=== PATIENT | female | born 1975 | race Asian ===

== ENCOUNTER 2017-11-09 05:05 | Inpatient (IN) | payer BC ==
[2017-11-04 16:30] VITALS: BMI 25.4
[2017-11-09] MEDS ORDERED: VASOPRESSIN 20 UNITS/ML VIAL IV ONE (07:15)
[2017-11-09] MEDS ORDERED: PROPOFOL 20 ML ONE (08:13)
[2017-11-09] MEDS ORDERED: fentaNYL CITRATE 250 MCG/5 ML VIAL ONE (08:13)
[2017-11-09] MEDS ORDERED: SUCCINYLCHOLINE CHLORIDE 200 MG/10 ML VIAL ONE (08:13)
[2017-11-09] MEDS ORDERED: LIDOCAINE HCL/PF 2% SDV 5ML VIAL ONE (08:14)
[2017-11-09] MEDS ORDERED: DEXAMETHASONE SOD PHOSPHATE 4 MG/1 ML VIAL ONE (08:14)
[2017-11-09] MEDS ORDERED: ROCURONIUM BROMIDE 50 MG/5 ML VIAL ONE (08:14)
[2017-11-09] MEDS ORDERED: MIDAZOLAM HCL 2 MG/2 ML SINGLE DOSE VIAL ONE ×3 (08:14→08:38)
[2017-11-09] MEDS ORDERED: DEXAMETHASONE SOD PHOSPHATE/PF 10 MG/ML SDV ONE (08:36)
[2017-11-09] MEDS ORDERED: ROPIVACAINE HCL 0.5% 30ML VIAL ONE (08:36)
[2017-11-09] MEDS ORDERED: CEFAZOLIN 2 GM/D5W 2 GM/50 ML ML IVPB ONE (09:00)
--- NOTE | 2017-11-09 10:07 | HP ---
Admitting History and Physical - Admission Chief Complaint: Here for myomectomy due to fibroids. History of Present Illness: 42 y/o female with no significant past medical history other than fibroid uterus here for scheduled abdominal myomectomy. Pt seen in office in July and again in September and pt counseled on options and desires myomectomy and bilateral salpingectomy. Consents signed in office and reconfirmed this a.m. History Source: Patient, Medical Record Limitations to Obtaining History: No Limitations - Past Medical History KETTLE COORDINATOR: No: Migraine Cardiovascular: No: AFIB, HTN Pulmonary: No: Asthma Reproductive: Yes: Fibroids. No: Ectopic , Endometriosis, PID ...LMP: 10/20/17 ...LMP Comment: regular ...: No Heme/Onc: No: Anemia Infectious Disease: No: HIV, MRSA, STD's Psych: No: Anxiety, Bipolar, Depression - Past Surgical History Past Surgical History: Yes: None - Smoking History Smoking history: Never smoked - Alcohol/Substance Use Hx Alcohol Use: No History of Substance Use: reports: None - Social History Usual Living Arrangement: Yes: With Spouse ADL: Independent History of Recent Travel: No Home Medications - Allergies Allergies/Adverse Reactions: Allergies Allergy/AdvReac Type Severity Reaction Status Date / Time No Known Drug Allergies Allergy Verified 11/09/17 08:57 - Home Medications Home Medications: Ambulatory Orders NK [No Known Home Medication] 11/04/17 Review of Systems - Review of Systems Constitutional: reports: No Symptoms Eyes: reports: No Symptoms HENT: reports: No Symptoms Neck: reports: No Symptoms Cardiovascular: reports: No Symptoms Respiratory: reports: No Symptoms Gastrointestinal: reports: No Symptoms Genitourinary: reports: No Symptoms Breasts: reports: No Symptoms Reported Musculoskeletal: reports: No Symptoms Integumentary: reports: No Symptoms Neurological: reports: No Symptoms Endocrine: reports: No Symptoms Hematology/Lymphatic: reports: No Symptoms Psychiatric: reports: No Symptoms Physical Examination Vital Signs: Vital Signs Temperature 97.9 F 11/09/17 08:58 Pulse Rate 70 11/09/17 08:58 Respiratory Rate 18 11/09/17 08:58 Blood Pressure 111/72 11/09/17 08:58 O2 Sat by Pulse Oximetry (%) 99 11/09/17 09:01 Constitutional: Yes: Well Nourished, No Distress, Calm Eyes: Yes: WNL HENT: Yes: WNL Neck: Yes: WNL Cardiovascular: Yes: WNL Respiratory: Yes: WNL Gastrointestinal: Yes: Soft, Palpable Mass (large fibroid uterus) Extremities: Yes: WNL Edema: No Neurological: Yes: Alert, Oriented Psychiatric: Yes: Alert, Oriented Imaging - Results Ultrasound: Report Reviewed Problem List - Problems (1) Fibroid Code(s): D25.9 - LEIOMYOMA OF UTERUS, UNSPECIFIED (2) Admission for sterilization Code(s): Z30.2 - ENCOUNTER FOR STERILIZATION Assessment/Plan 42 y/o with large fibroid uterus here for abdominal myomectomy and bilateral salpingectomy NPO SCDs Hampton to be placed in OR anesthesia has seen patient
[2017-11-09] MEDS ORDERED: ceFAZolin SODIUM 1 GM VIAL IVPB ONE (10:12)
[2017-11-09] MEDS ORDERED: ceFAZolin SODIUM 1 GM VIAL ONE (10:16)
[2017-11-09] MEDS ORDERED: NEOSTIGMINE METHYLSULFATE 0.5 MG/ML - 10 ML MDV ONE (11:18)
[2017-11-09] MEDS ORDERED: GLYCOPYRROLATE 0.2 MG/1 ML VIAL ONE (11:18)
[2017-11-09] MEDS ORDERED: oxyCODONE HCL 5 MG TABLET PO PRN (11:23)
[2017-11-09] MEDS ORDERED: IBUPROFEN 600 MG TABLET (FP) PO PRN (11:23)
[2017-11-09] MEDS ORDERED: IBUPROFEN 800 MG/8 ML IJ IVPB PRN (11:23)
[2017-11-09] MEDS ORDERED: ACETAMINOPHEN 325 MG TABLET (FP) PO PRN (11:23)
--- NOTE | 2017-11-09 11:23 | OP ---
Operative Note - Note: Operative Date: 11/09/17 Pre-Operative Diagnosis: uterine fibroid, desire for sterilization Operation: abdominal myomectomy, bilateral salpingectomy Implants: large 10cm dominant fundal fibroid, normal b/l tubes and ovaries Post-Operative Diagnosis: Same as Pre-op Surgeon: Sandhya Franco Sleep Manager: Carlitos Villagomez Anesthesiologist/MACHINERY RIGGER: Willie Zarco Anesthesia: General Specimens Removed: fibroid, bilateral fallopian tubes Estimated Blood Loss (mls): 400 Operative Report Dictated: Yes
[2017-11-09] MEDS ORDERED: SIMETHICONE 80 MG TAB.CHEW (FP) PO PRN (11:25)
[2017-11-09] MEDS ORDERED: LACTATED RINGERS SOLUTION 1,000 ML IV SCH (11:30)
[2017-11-09] MEDS ORDERED: ONDANSETRON 4 MG/2 ML VIAL IVPUSH PRN (11:49)
[2017-11-09] MEDS ORDERED: IBUPROFEN 800 MG/8 ML IJ IVPB ONE (13:05)
--- NOTE | 2017-11-09 13:44 | SURG ---
Surgery Welding Machine Operator Gas Note Welding Machine Operator Gas: Carlitos Villagomez PA-C Date of Service: 11/09/17 Diagnosis: uterine fibroid, desire for sterilization Procedure: abdominal myomectomy, bilateral salpingectomy I was present for the entirety of the operative procedure. For further detail, please refer to operative report. Visit type - Case Type Case Type: Scheduled - New patient This patient is new to me today: Yes Date on this admission: 11/09/17
--- NOTE | 2017-11-09 14:23 | OP ---
DATE OF OPERATION: 11/09/2017 PREOPERATIVE DIAGNOSES: Large intrauterine fibroid, desire for permanent sterilization. POSTOPERATIVE DIAGNOSES: Large intrauterine fibroid, desire for permanent sterilization. PROCEDURE: Abdominal myomectomy, bilateral salpingectomy. SURGEON: Sandhya Franco DO BOLT LABELER: RENATO Dupont ANESTHESIA: General by Willie Zarco CRNA and Cal Quintana MD. ESTIMATED BLOOD LOSS: 400 mL. COMPLICATIONS: None. SPECIMENS: Uterine fibroid and bilateral fallopian tubes. COUNTS: Sponge, needle and instrument count correct. DISPOSITION: Stable to PACU. BRIEF HISTORY AND PROCEDURE: Patient is a 42-year-old female who had been seen in the office with a known uterine fibroid for several years which had been growing slowly. The patient had several ultrasounds which noted a stable 10-cm dominant uterine fibroid. The patient elected to undergo surgery and following counseling on the surgical options she elected to undergo a myomectomy procedure. She also expressed desire for permanent sterilization at which point she also elected to undergo bilateral salpingectomy. Consents for the procedure and for the sterilization were signed in the office and reconfirmed upon the admission on November 09, 2017. Patient was admitted to [facility] on November 09, 2017. After the patient and surgeon were mutually identified in the holding area, the patient was taken back to the operating room where she was given general anesthesia and placed in the dorsal supine position. A Hampton catheter was placed under sterile conditions. She was prepped and draped and a hard timeout was performed. A Pfannenstiel skin incision was created in the skin with a scalpel and carried to the underlying layer of rectus fascia with the Bovie. The fascia was incised on either side of the midline and the fascial incision was carried in the superolateral direction sharply. The fascia was tented upward and dissected off of the underlying layer of rectus muscle with the Bovie. The musculature was retracted laterally and the peritoneum was entered sharply to allow for adequate room for the surgery. The uterus was exteriorized from the abdomen and a large approximately 10-cm fundal fibroid was appreciated. Attention was first turned to the right fallopian tube which was elevated with a Roma clamp and dissected off of its attachment to the ovary, mesosalpinx and uterus using the LigaSure device. The same was repeated on the left fallopian tube. Both fallopian tubes were sent to Pathology and confirmed by evaluation. 20cc of Dilute vasopressin was injected into the uterine serosa at the area of planned incision. An anterior-posterior incision was made along the uterine serosa through to the capsule of the fibroid. The fibroid was decapsulated and shelled out and removed in its entirety using sharp dissection with the Bovie. The uterine defect was palpated. No other small intrauterine fibroids were appreciated and the uterine defect was reapproximated using 0 chromic in several layers and the uterine serosa was reapproximated using 2-0 V-Loc resulting in excellent hemostasis. Bilateral tubal sites were noted to be hemostatic. The myomectomy site was noted to be hemostatic. The uterus was placed back in the abdomen. The peritoneum was reapproximated using 2-0 Vicryl in a running fashion. The musculature was reapproximated using 2 interrupted sutures using 2-0 Vicryl. The fascia was reapproximated using 1 Vicryl in a running fashion. The subcutaneous tissue was irrigated and reapproximated using 3-0 Vicryl in a running fashion and the skin was reapproximated in a subcuticular fashion and Steri-Strips were applied. Patient tolerated the procedure well, recovered in stable condition in the PACU after the procedure. Sponge, needle and instrument counts were reported to be correct at the end of the case. SANDHYA FRANCO DO /[id number] MTDD
[2017-11-09] MEDS: FERROUS SO4 325 MG TABLET (FP) PO SCH (17:30)
[2017-11-09] MEDS: oxyCODONE HCL 5 MG TABLET PO PRN (21:14)
[2017-11-10] MEDS: oxyCODONE HCL 5 MG TABLET PO PRN ×4 (04:40→22:28)
--- NOTE | 2017-11-10 07:49 | PN ---
Progress Note (short form) - Note Progress Note: POD#1 Pt states that she was oob and ambulated, voiding without difficulty. Tolerated solids foods, last pm without any nausea or emesis. Vital Signs Period Temp Pulse Resp BP Sys/Lyons Pulse Ox Last 24 Hr 97.6 F-98.6 F 59-82 14-20 98-112/58-72 97-100 GEN: A&0x3, NAD CV: RRR Lungs: CTA b/l ABD: soft, non-distended, inc tenderness. Dressing c/d/i. LE: SCDs in place. No calf tenderness or swelling noted b/l A/p: 42 yo female s/p abdominal myomectomy/b/l salpingectomy Continue diet as tolerated oob/ambulate CBC to be drawn oral pain medications as needed D/w Dr. Franco
[2017-11-10 07:59] LABS: BASO % 0.1 % (0-2.0); HEMATOCRIT 34.1 % (32.4-45.2); HEMOGLOBIN 11.7 GM/dL (10.7-15.3); LYMPH % 12.9 % (8-40); MCH 29.1 pg (25.7-33.7); MCHC 34.3 g/dl (32.0-36.0); MEAN CELL VOLUME 84.8 fl (80-96); MEAN PLT VOLUME 8.3 fl (7.5-11.1); PLATELET COUNT 222 K/MM3 (134-434); RBC 4.02 M/mm3 (3.60-5.2); RDW 14.5 % (11.6-15.6); WHITE BLOOD COUNT 15.5 K/mm3 (4.0-10.0)
[2017-11-10] MEDS: FERROUS SO4 325 MG TABLET (FP) PO SCH ×2 (08:30→17:20)
[2017-11-10] MEDS: ENOXAPARIN NA (PORCINE) 40 MG/0.4 ML DISP.SYRIN SQ SCH (09:28)
--- NOTE | 2017-11-10 09:54 | PN ---
Progress Note (short form) - Note Progress Note: Anesthesia Post-Op Note Pt s/p abdominal hysterectomy on 11/09/17 under PNB + GA. Pt reports that she is feeling well. Pain tolerable. Ambulated without issue. Tolerating PO without nausea/vomiting. Vital Signs Temperature 98.6 F 11/10/17 05:08 Pulse Rate 64 11/10/17 05:08 Respiratory Rate 18 11/10/17 05:08 Blood Pressure 98/62 11/10/17 05:08 O2 Sat by Pulse Oximetry (%) 97 11/09/17 21:00 Continue present management per primary team. Bowel regimen while on pain meds. OOB. Encourage ISS.
--- NOTE | 2017-11-10 15:55 | PN ---
Progress Note, Physician Chief Complaint: Pt with incisional pain and some dizziness/light headedness earlier. Tolerating clears, minimal VB. OOB + Void - Current Medication List Current Medications: Active Medications Acetaminophen (Tylenol -) 650 mg PO Q4H PRN PRN Reason: PAIN 1-5 Enoxaparin Sodium (Lovenox -) 40 mg SQ DAILY [facility] Last Admin: 11/10/17 09:28 Dose: 40 mg Ferrous Sulfate (Feosol -) 325 mg PO BIDWM [facility] Last Admin: 11/10/17 08:30 Dose: 325 mg Ibuprofen (Motrin -) 600 mg PO Q6H PRN PRN Reason: FEVER; IF TYLENOL NOT WRK Ibuprofen (Caldolor Injection -) 800 mg IVPB Q8H PRN PRN Reason: Fever - If PO not effective Last Admin: 11/09/17 13:10 Dose: 800 mg Ondansetron HCl (Zofran Injection) 4 mg IVPUSH Q6H PRN PRN Reason: NAUSEA AND/OR VOMITING Oxycodone HCl (Roxicodone -) 5 mg PO Q3H PRN PRN Reason: PAIN 1-5; IF TYLNL NT WRK Oxycodone HCl (Roxicodone -) 10 mg PO Q3H PRN PRN Reason: PAIN LEVEL 6-10 Last Admin: 11/10/17 09:28 Dose: 10 mg Simethicone (Mylicon -) 80 mg PO Q4H PRN PRN Reason: GAS - Objective Vital Signs: Vital Signs Temperature 99.0 F 11/10/17 14:00 Pulse Rate 73 11/10/17 14:00 Respiratory Rate 20 11/10/17 14:00 Blood Pressure 104/61 11/10/17 14:00 O2 Sat by Pulse Oximetry (%) 97 11/10/17 09:00 Constitutional: Yes: Well Nourished, No Distress, Calm Eyes: Yes: Conjunctiva Clear, EOM Intact HENT: Yes: Atraumatic Neck: Yes: WNL Cardiovascular: Yes: WNL Respiratory: Yes: Regular Gastrointestinal: Yes: WNL, Tenderness Wound/Incision: Yes: Clean/Dry, Well Approximated, Steri Strips Neurological: Yes: Alert, Oriented Labs: CBC, BMP 11/10/17 07:30 Problem List - Problems (1) Fibroid Code(s): D25.9 - LEIOMYOMA OF UTERUS, UNSPECIFIED (2) Admission for sterilization Code(s): Z30.2 - ENCOUNTER FOR STERILIZATION Assessment/Plan POD#1 s/p abdominal myomectomy and b/l salpingectomy regular diet PO pain meds advance activity d/c home in a.[facility]
--- NOTE | 2017-11-10 19:39 | DS ---
"Physical Examination Vital Signs: Vital Signs Temperature 99.0 F 11/10/17 14:00 Pulse Rate 73 11/10/17 14:00 Respiratory Rate 20 11/10/17 14:00 Blood Pressure 104/61 11/10/17 14:00 O2 Sat by Pulse Oximetry (%) 97 11/10/17 09:00 Labs: CBC, BMP 11/10/17 07:30 Discharge Summary Reason For Visit: UTERINE FIBROIDS Current Active Problems Admission for sterilization (Acute) Fibroid (Acute) Procedures: Principal: abdominal myomectomy, bilateral salpingectomy Hospital Course: Pt admitted on 11/09/2017 for scheduled abdominal myomectomy and bilateral salpingectomy. Pt underwent uncomplicated procedure. She recovered well and was discharged home on POD#2. Pt was able to eat, void and ambulate upon discharge. Condition: Good - Instructions Diet, Activity, Other Instructions: Dr. Franco discharge instructions Physical activity Resume your normal everyday activity as tolerated no heavy lifting or exercise until seen by your surgeon. You may walk unlimited amounts and climb stairs. You may resume driving the car when you feel safe and comfortable behind the wheel. No sexual activity as instructed by Dr. Franco Wound care If there are tapes on the skin over the incision leave them in place. They will peel off in the next 7 to 10 days. Do Not Peel them off. You may shower the day after surgery. If there are tapes present on the skin, you may shower over them. Diet There are no dietary restrictions. Eat healthy, high-fiber foods. Drink 6 to 8 glasses of liquid each day. This will assist in keeping your bowels regular. Pain management You may take Ibuprofen or Tylenol as needed for pain. If any pain prescription medication is ordered, it should be taken as prescribed for moderate to severe pain. Call Dr. Franco for any of the following: Severe pain not relieved by medication Fever of 101 or higher Excessive bleeding or drainage on dressing Inability to urinate Call the office at [phone] for an appointment in seven days. [facility] [employer] SH[employer]PER: This report was requested by: Kaleigh Parmar | Reference #: [id number] Disposition: HOME - Home Medications Comprehensive Discharge Medication List: Ambulatory Orders Ibuprofen [Motrin -] 600 mg PO QID PRN #28 tablet 11/10/17 Oxycodone HCl/Acetaminophen [Percocet 5-325 mg Tablet -] 1 tab PO Q4H #30 tablet MDD 6 11/10/17"
[2017-11-11] MEDS: FERROUS SO4 325 MG TABLET (FP) PO SCH (08:21)
[2017-11-11] MEDS ORDERED: BISACODYL 10 MG SUPP.RECT PR ONE (08:34)
--- NOTE | 2017-11-11 08:34 | PN ---
Progress Note (short form) - Note Progress Note: POD#2 Pt oob to chair yesterday. No nausea or emesis overnight, tolerated diet today. Passed flatus x1 yesterday. Having diffuse abd pain, "feels gassy" Vital Signs Period Temp Pulse Resp BP Sys/Lyons Pulse Ox Last 24 Hr 98.5 F-99.1 F 73-88 19-20 100-108/61-65 97-97 GEN: appers uncomfortable CV: RR, mild tachyardic Lungs: CTA b/l anteriorly ABD: soft, non-distened, diffuse tenderness. No rebound or guarding. Inc c/d/i with steri-strips. LE: no calf tenderness or swelling noted b/l A/P: 42 yo female POD#2 s/p abdominal myomectomy/ b/l salpingectomy Continue diet as tolerated Ambulated the patient in the hallway this am with the nurse and myself Stat CBC Dulcolax this am Spoke with nurse will given tylenol/motrin for pain and medicate with narcotics for severe pain, her pain appears to be gas. Simethicon as needed Plan for discharge today if pain improved D/w Dr. Franco
[2017-11-11] MEDS: ENOXAPARIN NA (PORCINE) 40 MG/0.4 ML DISP.SYRIN SQ SCH (09:24)
[2017-11-11 10:00] LABS: BASO % 0.4 % (0-2.0); EOS % 0.7 % (0-4.5); HEMATOCRIT 35.8 % (32.4-45.2); HEMOGLOBIN 11.9 GM/dL (10.7-15.3); LYMPH % 18.2 % (8-40); MCH 28.4 pg (25.7-33.7); MCHC 33.1 g/dl (32.0-36.0); MEAN PLT VOLUME 8.2 fl (7.5-11.1); MONO % 6.3 % (3.8-10.2); NEUT % 74.4 % (42.8-82.8); PLATELET COUNT 215 K/MM3 (134-434); RBC 4.17 M/mm3 (3.60-5.2); RDW 14.8 % (11.6-15.6)
--- NOTE | 2017-11-11 12:42 | PATH ---
Surgical Pathology Report Patient Name: MARCE SUAREZ [facility]. Rec. #: [id number] /Age/Gender: 1975 (Age: 42) / F Account: [id number] Location: [address] [place] [address] Taken: 11/09/2017 Received: 11/09/2017 Reported: 11/11/2017 Physicians: Sandhya Franco M.D. Specimen(s) Received A: FIBROID B: LEFT FALLOPIAN TUBE C: RIGHT FALLOPIAN TUBE Clinical History Uterine fibroids Final Diagnosis A. FIBROID, MYOMECTOMY: LEIOMYOMA. B. FALLOPIAN TUBE, LEFT, SALPINGECTOMY: FALLOPIAN TUBE WITH PARATUBAL CYST, INCLUDING FULL LUMINAL PORTION AND FIMBRIATED END. C. FALLOPIAN TUBE, RIGHT, SALPINGECTOMY: FALLOPIAN TUBE WITH FOCAL ADHESIONS, INCLUDING FULL LUMINAL PORTION AND FIMBRIATED END. Electronically Signed Toshia Ramirez M.D. Gross Description A. Received in formalin labeled "fibroid," is a 629 g, 10.5 x 10.0 x 9.0 cm mass. The outer surface is lindsay-pink with a focal defect. Sectioning reveals lindsay, firm to rubbery parenchyma. No areas of hemorrhage or necrosis are identified. Telecommunication Engineer sections are submitted in 5 cassettes. B. Received in formalin labeled "left fallopian tube," is a 5 cm in length fimbriated fallopian tube. There is a 0.4 cm in greatest dimension paratubal cyst attached to the fimbria. The outer surface is morton purple and smooth. Sectioning reveals an unremarkable lumen. Telecommunication Engineer sections are submitted in 2 cassettes as follows: 1-fimbria with paratubal cyst; 2-cross sections of fallopian tube. C. Received in formalin labeled "right fallopian tube," is a 4 cm in length fimbriated fallopian tube. The outer surface is morton purple with focal adhesions. Sectioning reveals an unremarkable lumen. Telecommunication Engineer sections are submitted in 2 cassettes as follows: 1-fimbria; 2-cross sections of fallopian tube. /11/10/201711/10/2017
[2017-11-11 15:16] VITALS: BP 96/63; PULSE 82; TEMP 98.3
== END 2017-11-11 16:45 | disposition home or self-care (01) | DRG 743 ==
LOC: JSAMEDAYSX 05:05 → EDSTATUS 10:00 → J6S 14:36
PROVIDERS: ADMIT Obstetrics & Gynecology; ATTEND Obstetrics & Gynecology
PROC: 0UB70ZZ Excision of Bilateral Fallopian Tubes, Open Approach (ICD-10-PCS; 2017-11-09)
PROC: 0UB90ZZ Excision of Uterus, Open Approach (ICD-10-PCS; principal; 2017-11-09 10:00)
DX: D25.9 Leiomyoma of uterus, unspecified (principal); Z30.2 Encounter for sterilization
CPT/HCPCS: 36415; 84703; 85025; 88302-TC; 88305-TC; 94760